=== PATIENT | female | born 1990 | race African-American/Black ===

== ENCOUNTER 2017-05-11 15:01 | Emergency (ER) | payer SELFPAY, OTHER ==
[2017-05-11 15:42] LABS: URINE HCG POC HCG NEGATIVE (Negative)
[2017-05-11 16:13] LABS: BACTERIA,URINE 0 /HPF (0-FEW); BILIRUBIN,URINE NEGATIVE (NEG); CLARITY,URINE CLEAR; COLOR,URINE YELLOW; GLUCOSE,URINE 500 mg/dL (NEG); NITRITE,URINE NEGATIVE (NEG); PH,URINE 5.5; PROTEIN,URINE NEGATIVE (NEG-TRACE); RBC,URINE OCC /HPF (0-2); SQUAMOUS EPITHELIAL CELL,UR FEW /LPF; UROBILINOGEN,URINE 0.2 mg/dL (0.2 mg/dL); WBC,URINE 0 /HPF (0-4)
[2017-05-11] MEDS: AZITHROMYCIN 250 MG TABLET. PO (17:14)
[2017-05-11] MEDS: cefTRIAXone IM 250 MG VIAL IM (17:15)
[2017-05-11] MEDS: LIDOCAINE 2% 20 ML VIAL. IJ (17:16)
[2017-05-14 19:19] LABS: CHLAMYDIA PROBE Negative (Negative); GC PROBE Negative (Negative)
== END 2017-05-11 17:30 | disposition home or self-care (01) ==
LOC: ER 15:01
DX: B37.9 Candidiasis, unspecified (principal); A59.9 Trichomoniasis, unspecified
CPT/HCPCS: 81001; 81025; 87491; 87591; 96372; 99284; J0696; Q0111; Q0144

== ENCOUNTER 2017-05-26 18:53 | Emergency (ER) | payer SELFPAY | END 2017-05-26 20:14 | disposition home or self-care (01) | LOC: ER 18:53 | DX: R19.7 Diarrhea, unspecified (principal); R10.9 Unspecified abdominal pain; F17.200 Nicotine dependence, unspecified, uncomplicated | CPT/HCPCS: 99283 ==

== ENCOUNTER 2017-07-16 11:29 | Inpatient (IN) | payer OTHER ==
[2017-07-16 11:55] LABS: URINE HCG POC HCG NEGATIVE (Negative)
[2017-07-16 12:18] LABS: BILIRUBIN,URINE NEGATIVE (NEG); CLARITY,URINE CLEAR; COLOR,URINE YELLOW; GLUCOSE,URINE >=1000 mg/dL (NEG); NITRITE,URINE NEGATIVE (NEG); PH,URINE 5.5; PROTEIN,URINE NEGATIVE (NEG-TRACE)
[2017-07-16 12:34] LABS: ADD MAN DIFF? NO; BASO % 1 % (0-3); EOS % 1 % (0-3); HEMATOCRIT 44.5 % (36.0-47.0); HEMOGLOBIN 14.5 g/dL (12.0-15.5); LYMPH # 1.8 x10^3/uL (1.0-4.8); LYMPH % 31 % (24-48); MEAN CORPUSCULAR HEMOGLOBIN 26 pg (25-35); MEAN CORPUSCULAR HGB CONC 33 g/dL (31-37); MEAN CORPUSCULAR VOLUME 80 fL (79-100); MONO # 0.4 x10^3/uL (0.0-1.1); MONO % 6 % (0-9); NEUT # 3.5 x10^3uL (1.8-7.7); NEUT % 61 % (31-73); PLATELET COUNT 188 x10^3/uL (140-400); RED BLOOD COUNT 5.56 x10^6/uL (3.50-5.40); RED CELL DISTRIBUTION WIDTH 13.2 % (11.5-14.5); WHITE BLOOD COUNT 5.6 x10^3/uL (4.0-11.0)
[2017-07-16 12:36] LABS: BACTERIA,URINE 0 /HPF (0-FEW); SQUAMOUS EPITHELIAL CELL,UR FEW /LPF
[2017-07-16 12:43] LABS: INR 1.1 (0.8-1.1); PARTIAL THROMBOPLASTIN TIME 30 SEC (24-38); PROTHROMBIN TIME PATIENT 13.9 SEC (11.7-14.0)
[2017-07-16 13:02] LABS: ALBUMIN/GLOBULIN RATIO 0.7 (1.0-1.7); ALK PHOS 97 U/L (46-116); ALT (SGPT) 28 U/L (14-59); ANION GAP 10 (6-14); AST (SGOT) 12 U/L (15-37); BLOOD UREA NITROGEN 19 mg/dL (7-20); BUN/CREATININE RATIO 21 (6-20); CALCIUM 8.7 mg/dL (8.5-10.1); CARBON DIOXIDE 27 mmol/L (21-32); CHLORIDE 98 mmol/L (98-107); CREATININE 0.9 mg/dL (0.6-1.0); DIRECT BILIRUBIN < 0.1 mg/dL (0.0-0.2); GFR 89.6; POTASSIUM 4.2 mmol/L (3.5-5.1); SODIUM 135 mmol/L (136-145); TOTAL BILIRUBIN 0.4 mg/dL (0.2-1.0); TOTAL PROTEIN 7.3 g/dL (6.4-8.2)
[2017-07-16 13:05] LABS: GLUCOSE 542 mg/dL (70-99)
[2017-07-16 13:35] LABS: FECAL OB PT POSITIVE (NEG); NEG OBC FOB NEG; POS OBC FOB POS
[2017-07-16] MEDS: INSULIN REGULAR 100 UNIT/ML 10ML VIAL. IV (14:04)
[2017-07-16] MEDS: IV NORMAL SALINE 1000ML BAG 1,000 ML IV ×2 (14:18→23:06)
[2017-07-16] MEDS: PANTOPRAZOLE SODIUM IV DRIP 80 MG in IV NORMAL SALINE 100ML 100 ML IV (14:18)
[2017-07-16] MEDS: INSULIN ASPART 300 UNITS/3 ML INSULN.PEN SQ (17:25)
[2017-07-16] MEDS: NICOTINE 14MG PATCH. TD (18:00)
[2017-07-16 18:10] LABS: HEMOGLOBIN 13.8 g/dL (12.0-15.5)
[2017-07-16 18:10] LABS: HEMATOCRIT 43.1 % (36.0-47.0)
[2017-07-16] MEDS: fentaNYL PF VIAL 100 MCG/2 ML VIAL IV (18:49)
[2017-07-16] MEDS ORDERED: PNEUMOCOCCAL VAX SCREEN BY RX. MC (19:00)
[2017-07-16 21:03] LABS: POC GLUCOSE 249 mg/dL (70-99)
[2017-07-16 23:03] LABS: POC GLUCOSE 169 mg/dL (70-99)
[2017-07-16] MEDS: INSULIN DETEMIR 300 UNITS/3 ML INSULN.PEN. SQ (23:10)
[2017-07-17 03:14] LABS: POC GLUCOSE 89 mg/dL (70-99)
[2017-07-17] MEDS: fentaNYL PF VIAL 100 MCG/2 ML VIAL IV (04:55)
[2017-07-17] MEDS: ACETAMINOPHEN 325 MG TABLET. PO (04:56)
[2017-07-17 05:01] LABS: ADD MAN DIFF? NO
[2017-07-17] MEDS: ONDANSETRON PF 4 MG/2 ML VIAL. IV (05:14)
[2017-07-17 05:33] LABS: BASO % 1 % (0-3); EOS # 0.1 x10^3/uL (0.0-0.7); EOS % 1 % (0-3); HEMATOCRIT 41.5 % (36.0-47.0); HEMOGLOBIN 13.4 g/dL (12.0-15.5); LYMPH # 2.7 x10^3/uL (1.0-4.8); LYMPH % 43 % (24-48); MEAN CORPUSCULAR HEMOGLOBIN 26 pg (25-35); MEAN CORPUSCULAR HGB CONC 32 g/dL (31-37); MEAN CORPUSCULAR VOLUME 80 fL (79-100); MONO # 0.6 x10^3/uL (0.0-1.1); MONO % 10 % (0-9); NEUT # 2.8 x10^3uL (1.8-7.7); NEUT % 45 % (31-73); PLATELET COUNT 183 x10^3/uL (140-400); RED BLOOD COUNT 5.16 x10^6/uL (3.50-5.40); RED CELL DISTRIBUTION WIDTH 13.3 % (11.5-14.5); WHITE BLOOD COUNT 6.2 x10^3/uL (4.0-11.0)
[2017-07-17 05:54] LABS: ALBUMIN 2.5 g/dL (3.4-5.0); ALBUMIN/GLOBULIN RATIO 0.7 (1.0-1.7); ALK PHOS 56 U/L (46-116); ALT (SGPT) 25 U/L (14-59); ANION GAP 9 (6-14); AST (SGOT) 17 U/L (15-37); BLOOD UREA NITROGEN 12 mg/dL (7-20); BUN/CREATININE RATIO 17 (6-20); CARBON DIOXIDE 25 mmol/L (21-32); CHLORIDE 107 mmol/L (98-107); CREATININE 0.7 mg/dL (0.6-1.0); GFR 119.7; GLUCOSE 140 mg/dL (70-99); POTASSIUM 3.5 mmol/L (3.5-5.1); SODIUM 141 mmol/L (136-145); TOTAL BILIRUBIN 0.7 mg/dL (0.2-1.0); TOTAL PROTEIN 6.3 g/dL (6.4-8.2)
[2017-07-17 07:40] LABS: POC GLUCOSE 147 mg/dL (70-99)
[2017-07-17] MEDS: PNEUMOC CONJ VACC 23-VALENT 0.5 ML VIAL. VAX IM (09:24)
[2017-07-17] MEDS: NICOTINE 14MG PATCH. TD (09:24)
[2017-07-17] MEDS: INSULIN ASPART 300 UNITS/3 ML INSULN.PEN SQ ×2 (09:25→11:30)
[2017-07-17] MEDS: IV NORMAL SALINE 1000ML BAG 1,000 ML IV (09:26)
[2017-07-17 11:30] LABS: POC GLUCOSE 83 mg/dL (70-99)
[2017-07-17 12:18] LABS: POC GLUCOSE 80 mg/dL (70-99)
[2017-07-17] MEDS: PANTOPRAZOLE 40 MG TABLET.DR. PO (14:05)
== END 2017-07-17 16:31 | disposition home or self-care (01) | DRG 378 ==
LOC: ER 11:29 → 5 SOUTH 13:44
DX: K62.5 Hemorrhage of anus and rectum (principal); Q20.5 Discordant atrioventricular connection; F17.210 Nicotine dependence, cigarettes, uncomplicated; R73.9 Hyperglycemia, unspecified; K21.9 Gastro-esophageal reflux disease without esophagitis; K27.9 Peptic ulcer, site unspecified, unspecified as acute or chronic, without hemorrhage or perforation; Z83.3 Family history of diabetes mellitus; Z87.11 Personal history of peptic ulcer disease; Z86.32 Personal history of gestational diabetes
CPT/HCPCS: 36415; 74022; 80053; 80076; 81001; 81025; 82274; 82962; 85014; 85018; 85025; 85610; 85730; 86850; 86900; 86901; 90732; 96365; 96375; 99285; 99285-25; 99406; C9113; J1815; J2405; J3010; J7030

== ENCOUNTER 2017-07-22 23:46 | Emergency (ER) | payer OTHER ==
[2017-07-23 00:25] LABS: POC GLUCOSE 478 mg/dL (70-99)
[2017-07-23 00:51] LABS: BILIRUBIN,URINE NEGATIVE (NEG); CLARITY,URINE CLEAR; COLOR,URINE YELLOW; GLUCOSE,URINE >=1000 mg/dL (NEG); NITRITE,URINE NEGATIVE (NEG); PROTEIN,URINE NEGATIVE (NEG-TRACE)
[2017-07-23 00:58] LABS: BACTERIA,URINE 0 /HPF (0-FEW); RBC,URINE OCC /HPF (0-2); SQUAMOUS EPITHELIAL CELL,UR FEW /LPF; WBC,URINE OCC /HPF (0-4)
[2017-07-23] MEDS: IV NORMAL SALINE 1000ML BAG 1,000 ML IV ×2 (01:08→02:05)
[2017-07-23 01:31] LABS: AGAP ISTAT 18 mmol/L (6-14); BUN ISTAT 20 mg/dL (8-26); CHLORIDE ISTAT 97 mmol/L (98-110); CREATININE ISTAT 0.9 mg/dL (0.5-1.4); GLUCOSE ISTAT 474 mg/dL (70-99); HEMATOCRIT ISTAT 42 % (36-40); HEMOGLOBIN ISTAT 14.3 g/dL (12-15); ION CA ISTAT 1.13 mmol/L (1.13-1.32); POTASSIUM ISTAT 4.4 mmol/L (3.5-5.0); SODIUM ISTAT 135 mmol/L (135-145); TOT CO2 ISTAT 25 mmol/L (23-32)
[2017-07-23 01:48] LABS: POC GLUCOSE 467 mg/dL (70-99)
[2017-07-23] MEDS: INSULIN REGULAR 100 UNIT/ML 10ML VIAL. IV (02:01)
[2017-07-23] MEDS: SUCRALFATE 1 GM/10 ML ORAL.SUSP. PEG (03:02)
[2017-07-23 03:15] LABS: POC GLUCOSE 182 mg/dL (70-99)
== END 2017-07-23 03:47 | disposition home or self-care (01) ==
LOC: ER 23:46
DX: E11.65 Type 2 diabetes mellitus with hyperglycemia (principal); E86.0 Dehydration; Z87.19 Personal history of other diseases of the digestive system
CPT/HCPCS: 36415; 80047; 81001; 82962; 85014; 85018; 96361; 96374; 99285-25; J1815; J7030

== ENCOUNTER 2017-08-24 16:28 | Emergency (ER) | payer OTHER ==
[2017-08-24 17:06] LABS: URINE HCG POC HCG NEGATIVE (Negative)
[2017-08-24 17:28] LABS: BILIRUBIN,URINE NEGATIVE (NEG); CLARITY,URINE CLEAR; COLOR,URINE YELLOW; GLUCOSE,URINE >=1000 mg/dL (NEG); NITRITE,URINE NEGATIVE (NEG); PROTEIN,URINE NEGATIVE (NEG-TRACE)
[2017-08-24 17:37] LABS: ADD MAN DIFF? NO; BACTERIA,URINE 0 /HPF (0-FEW); RBC,URINE OCC /HPF (0-2); SQUAMOUS EPITHELIAL CELL,UR FEW /LPF; WBC,URINE 0 /HPF (0-4)
[2017-08-24 17:40] LABS: BASO # 0.1 x10^3/uL (0.0-0.2); BASO % 1 % (0-3); EOS % 1 % (0-3); HEMATOCRIT 41.8 % (36.0-47.0); LYMPH # 1.7 x10^3/uL (1.0-4.8); LYMPH % 32 % (24-48); MEAN CORPUSCULAR HEMOGLOBIN 27 pg (25-35); MEAN CORPUSCULAR HGB CONC 33 g/dL (31-37); MEAN CORPUSCULAR VOLUME 80 fL (79-100); MONO # 0.4 x10^3/uL (0.0-1.1); MONO % 7 % (0-9); NEUT # 3.2 x10^3uL (1.8-7.7); NEUT % 59 % (31-73); PLATELET COUNT 189 x10^3/uL (140-400); RED BLOOD COUNT 5.21 x10^6/uL (3.50-5.40); RED CELL DISTRIBUTION WIDTH 12.7 % (11.5-14.5); WHITE BLOOD COUNT 5.3 x10^3/uL (4.0-11.0)
[2017-08-24 17:57] LABS: ANION GAP 10 (6-14); BLOOD UREA NITROGEN 14 mg/dL (7-20); CALCIUM 8.9 mg/dL (8.5-10.1); CARBON DIOXIDE 25 mmol/L (21-32); CHLORIDE 100 mmol/L (98-107); CREATININE 1.1 mg/dL (0.6-1.0); GFR 71.1; POTASSIUM 3.9 mmol/L (3.5-5.1); SODIUM 135 mmol/L (136-145)
[2017-08-24 18:04] LABS: GLUCOSE 519 mg/dL (70-99)
[2017-08-24] MEDS ORDERED: INSULIN REGULAR 100 UNIT/ML 3ML VIAL. IV (18:15)
[2017-08-24] MEDS ORDERED: IV NORMAL SALINE 1000ML BAG 1,000 ML IV ×2 (18:15)
[2017-08-26 14:29] LABS: CHLAMYDIA PROBE Negative (Negative); GC PROBE Negative (Negative)
== END 2017-08-24 18:20 | disposition left against medical advice (07) ==
LOC: ER 16:28
DX: O46.91 Antepartum hemorrhage, unspecified, first trimester (principal); E11.65 Type 2 diabetes mellitus with hyperglycemia; O24.911 Unspecified diabetes mellitus in pregnancy, first trimester; Z87.19 Personal history of other diseases of the digestive system; Z3A.01 Less than 8 weeks gestation of pregnancy
CPT/HCPCS: 36415; 80048; 81001; 81025; 84702; 85025; 87491; 87591; 99284; Q0111

== ENCOUNTER 2019-04-11 22:46 | Emergency (ER) | payer OTHER ==
[~2019-04-11] VITALS: Ht 152.4 cm; Wt 72.6 kg
[~2019-04-11 22:46] MED LIST: ACET500T68 PO; DICY20TA3 PO; DIPH1TAB PO; DIPH25CA58 PO; FLUC150T PO; METF500T16 PO; METR500T PO; NYST15PO9 TP; PANT20TA2 PO; RANI-376 PO
[2019-04-11] MEDS ORDERED: LIDOCAINE 1% Multi-Dose 20 ML VIAL. INJ ONE (23:45)
--- NOTE | 2019-04-11 23:57 | PHYS DOC ---
Past Medical History Past Medical History: Diabetes-Type II, Other Additional Past Medical Histor: ventricle inversion, GASTRIC ULCER, GEST. DIABETES, STAPH INFECTION Past Surgical History: , Other Additional Past Surgical Histo: hip surgery for dislocation Alcohol Use: Occasionally Drug Use: None Adult General Chief Complaint Chief Complaint: ABSCESS HPI HPI Patient is a 29-year-old female with a history of diabetes who states she is developed a painful swollen area on her right buttock. This is been over the last several days. She states she shaved her perineal area and shortly thereafter developed a pustule. She states initially the pustule drained however a day or so later she noted that the swelling was back and the size increased over a day or so. She denies any fever chills or sweats. She has had a history of staph infection in the past.[] Review of Systems Review of Systems Constitutional: Denies fever or chills [] Eyes: Denies change in visual acuity, redness, or eye pain [] HENT: Denies nasal congestion or sore throat [] Respiratory: Denies cough or shortness of breath [] Cardiovascular: No additional information not addressed in HPI [] GI: Denies abdominal pain, nausea, vomiting, bloody stools or diarrhea [] : Denies dysuria or hematuria [] Musculoskeletal: Denies back pain or joint pain [] Integument: Per history of present illness[] Neurologic: Denies headache, focal weakness or sensory changes [] Endocrine: Denies polyuria or polydipsia [] All other systems were reviewed and found to be within normal limits, except as documented in this note. Current Medications Current Medications Current Medications Medications (Trade) Dose Ordered Sig/[facility] Start Time Stop Time Status Last Admin Dose Admin Lidocaine HCl (Lidocaine 1% 20ml Vial) 20 ml 1X ONCE 04/11/19 23:45 04/11/19 23:46 DC Allergies Allergies Allergies Coded Allergies Type Severity Reaction Last Updated Verified No Known Drug Allergies 02/08/14 No Physical Exam Physical Exam Constitutional: Well developed, well nourished, mild to moderate distress, non- toxic appearance. [] HENT: Normocephalic, atraumatic, bilateral external ears normal, oropharynx moist, no oral exudates, nose normal. [] Eyes: PERRLA, EOMI, conjunctiva normal, no discharge. [] Neck: Normal range of motion, no tenderness, supple, no stridor. [] Cardiovascular:Heart rate regular rhythm, no murmur [] Lungs & Thorax: Bilateral breath sounds clear to auscultation [] Abdomen: Bowel sounds normal, soft, no tenderness, no masses, no pulsatile masses. [] Skin: On the inferior medial aspect of the right gluteal cleft that does not track towards the anus there is a golf ball size abscess that is easily identified and palpated.. [] Back: No tenderness, no CVA tenderness. [] Extremities: No tenderness, no cyanosis, no clubbing, ROM intact, no edema. [] Neurologic: Alert and oriented X 3, normal motor function, normal sensory function, no focal deficits noted. [] Psychologic: Affect normal, judgement normal, mood normal. [] Current Patient Data Vital Signs Vital Signs Date Time Temp Pulse Resp B/P (MAP) Pulse Ox O2 Delivery O2 Flow Rate FiO2 04/11/19 23:00 99.1 108 16 147/65 (92) 98 Room Air 99.1 EKG EKG [] Radiology/Procedures Radiology/Procedures [] Course & Med Decision Making Course & Med Decision Making Pertinent Labs and Imaging studies reviewed. (See chart for details) [Procedure note: Abscess incision and drainage The abscess was identified and using 5 mL of 1% lidocaine the area around the abscess was injected and anesthetized. Then using an 11 blade a 2 cm incision was made. The wound was probed with hemostats and a large amount of purulent material was expressed. A dressing was then applied. The patient was given 10 mg Percocet, Bactrim DS and Zofran ODT.] Dragon Disclaimer Dragon Disclaimer This electronic medical record was generated, in whole or in part, using a voice recognition dictation system. Departure Departure Impression: Primary Impression: Abscess of right buttock Disposition: 01 HOME, SELF-CARE Condition: IMPROVED Referrals: UNKNOWN PCP NAME (PCP) Patient Instructions: Abscess, Abscess, Care After, Abscess, Perineal Additional Instructions: Return to the emergency department with any new or concerning symptoms. Scripts Ondansetron Hcl (ZOFRAN) 4 Mg Tablet 1 TAB PO Q8HRS PRN for NAUSEA, #20 TAB Prov: JIM ROBERT DO 04/12/19 Oxycodone/Apap 5-325 (PERCOCET 5-325 MG TABLET ) 1 Each Tablet 1 TAB PO PRN Q6HRS PRN for PAIN, #20 TAB 0 Refills Prov: JIM ROBERT DO 04/12/19 Sulfamethoxazole/Trimethoprim (BACTRIM DS TABLET) 1 Each Tablet 1 TAB PO BID, #20 TAB Prov: JIM ROBERT DO 04/12/19 JIM ROBERT DO Apr 11, 2019 23:57
[2019-04-12] VITALS: BP 118/86
[2019-04-12] MEDS ORDERED: ONDA4TAB7 PO (00:01)
[2019-04-12] MEDS ORDERED: SULF1TAB24 PO (00:01)
[2019-04-12] MEDS ORDERED: OXYC1TAB15 PO (00:01)
[2019-04-12] MEDS ORDERED: oxyCODONE/APAP 5/325 1 TAB TABLET PO ONE (00:30)
[2019-04-12] MEDS ORDERED: SMZ/TMP 800/160MG TABLET. PO ONE (00:30)
[2019-04-12] MEDS ORDERED: ONDANSETRON ODT 4 MG TAB.RAPDIS. PO ONE (00:30)
== END 2019-04-12 00:15 | disposition home or self-care (01) ==
LOC: ER 22:46
DX: L02.31 Cutaneous abscess of buttock (principal); E11.9 Type 2 diabetes mellitus without complications
CPT/HCPCS: 10060; 99283-25

== ENCOUNTER 2019-09-26 12:57 | Emergency (ER) | payer MEDICARE, OTHER ==
[~2019-09-26] VITALS: Ht 152.4 cm; Wt 77.0 kg
[~2019-09-26 12:57] MED LIST changes: +ONDA4TAB7 PO; +OXYC1TAB15 PO; +SULF1TAB24 PO
[2019-09-26 13:23] VITALS: BP 124/82
[2019-09-26] MEDS ORDERED: HYDR-3164 PO (14:21)
[2019-09-26] MEDS ORDERED: CEPH-264 PO (14:21)
--- NOTE | 2019-09-26 14:22 | PHYS DOC ---
Past Medical History Past Medical History: Diabetes-Type II, Other Additional Past Medical Histor: ventricle inversion, GASTRIC ULCER, GEST. DIABETES, STAPH INFECTION Past Surgical History: , Other Additional Past Surgical Histo: hip surgery for dislocation Smoking Status: Current Every Day Smoker Alcohol Use: Occasionally Drug Use: None General Adult EDM: Chief Complaint: INSECT BITE HPI: HPI: Patient is a 29 year old FEMALE who presents with bug bite to the back of her scalp for a week. Patient states is very tender. Patient states is been nondraining. Review of Systems: Review of Systems: Integument: Denies rash. Abscess. [] Heart Score: Risk Factors: Risk Factors: DM, Current or recent (<one month) smoker, HTN, HLP, family history of CAD, obesity. Risk Scores: Score 0 - 3: 2.5% MACE over next 6 weeks - Discharge Home Score 4 - 6: 20.3% MACE over next 6 weeks - Admit for Clinical Observation Score 7 - 10: 72.7% MACE over next 6 weeks - Early Invasive Strategies Allergies: Allergies: Allergies Coded Allergies Type Severity Reaction Last Updated Verified No Known Drug Allergies 02/08/14 No Physical Exam: PE: Constitutional: Well developed, well nourished, no acute distress, non-toxic appearance. [] HENT: Normocephalic, atraumatic, bilateral external ears normal, oropharynx moist, no oral exudates, nose normal. [] Eyes: PERRLA, EOMI, conjunctiva normal, no discharge. [] Neck: Normal range of motion, no tenderness, supple, no stridor. [] Cardiovascular:Heart rate regular rhythm, no murmur [] Lungs & Thorax: Bilateral breath sounds clear to auscultation [] Abdomen: Bowel sounds normal, soft, no tenderness, no masses, no pulsatile masses. [] Skin: Warm, dry, no erythema, no rash. Abscess to the back of the scalp. [] Back: No tenderness, no CVA tenderness. [] Extremities: No tenderness, no cyanosis, no clubbing, ROM intact, no edema. [] Neurologic: Alert and oriented X 3, normal motor function, normal sensory function, no focal deficits noted. [] Psychologic: Affect normal, judgement normal, mood normal. [] Current Patient Data: Vital Signs: Vital Signs Date Time Temp Pulse Resp B/P (MAP) Pulse Ox O2 Delivery O2 Flow Rate FiO2 09/26/19 13:23 98.1 89 18 124/82 (96) 100 Room Air 98.1 EKG: EKG: [] Radiology/Procedures: Radiology/Procedures: [] Course & Med Decision Making: Course & Med Decision Making Pertinent Labs and Imaging studies reviewed. (See chart for details) Quarter sized hard non-indurated nondraining abscess to the back of her head with some surrounding redness that is mainly contained to the abscessed area. Afebrile. She denies fevers, nausea, vomiting, abdominal pain, chills, body aches, chest pain, shortness of breath, dizziness. States abscess is non- indurated and is not draining patient is given a antibiotic and is told to come back in 48 hours for a wound recheck. She is not diabetic. [] Dragon Disclaimer: Dragon Disclaimer: This electronic medical record was generated, in whole or in part, using a voice recognition dictation system. Departure Departure Impression: Primary Impression: Abscess Disposition: 01 HOME, SELF-CARE Condition: STABLE Referrals: UNKNOWN PCP NAME (PCP) Patient Instructions: Abscess Additional Instructions: Follow-up with primary care provider or return here in 48 hours for a wound recheck. Continue using warm compresses to the area. Take the antibiotic as prescribed and with food. Take pain medication as prescribed, with food and do not drink alcohol or drive while taking it. Scripts Hydrocodone/Apap 5-325 (NORCO 5-325 TABLET) 1 Each Tablet 1 TAB PO PRN Q6HRS PRN for PAIN, #10 TAB 0 Refills Prov: RINKU FORD APRN 09/26/19 Cephalexin (KEFLEX) 500 Mg Capsule 1 CAP PO TID for 10 Days, #30 CAP 0 Refills Prov: RINKU FORD APRN 09/26/19 Justicifation of Admission Dx: Justifications for Admission: Justification of Admission Dx: No (not needed) RINKU FORD APRN Sep 26, 2019 14:22
== END 2019-09-26 14:34 | disposition home or self-care (01) ==
LOC: ER 12:57
DX: L02.811 Cutaneous abscess of head [any part, except face] (principal); E11.9 Type 2 diabetes mellitus without complications; F17.200 Nicotine dependence, unspecified, uncomplicated; W57.XXXA Bitten or stung by nonvenomous insect and other nonvenomous arthropods, initial encounter; Y93.89 Activity, other specified; Y92.89 Other specified places as the place of occurrence of the external cause; Y99.8 Other external cause status
CPT/HCPCS: 99283

== ENCOUNTER 2021-08-25 09:13 | Emergency (ER) | payer MEDICARE, OTHER ==
[~2021-08-25] VITALS: Ht 152.4 cm; Wt 74.0 kg
[~2021-08-25 09:13] MED LIST changes: +CEPH-264 PO; +DICY20TA PO; -DICY20TA3 PO; +HYDR-3164 PO
[2021-08-25] MEDS ORDERED: IV NORMAL SALINE 1000ML BAG 1,000 ML IV SCH (09:45)
[2021-08-25 09:58] LABS: BARBITURATES NEG (NEG); BENZODIAZEPINES NEG (NEG); CANNABINOIDS NEG (NEG); COCAINE POS (NEG); METHADONE NEG (NEG); OPIATES NEG (NEG); PHENCYCLIDINE NEG (NEG)
[2021-08-25 09:59] LABS: AMPHETAMINE/METHAMPHETAMINE NEG (NEG)
--- NOTE | 2021-08-25 10:04 | PHYS DOC ---
Past Medical History Past Medical History: Diabetes-Type II, Other Additional Past Medical Histor: ventricle inversion, GASTRIC ULCER, GEST. DIABETES, STAPH INFECTION Past Surgical History: Cholecystectomy Additional Past Surgical Histo: hip surgery for dislocation Smoking Status: Current Every Day Smoker Alcohol Use: None Drug Use: None General Adult EDM: Chief Complaint: VAGINAL PROBLEM HPI: HPI: Patient is a 31 year old female who presents with vaginal yeast and uncontrolled neuropathy pain. She does not currently have a primary care provider. She gets her insulin for her diabetes through a telehealth doctor but they cannot prescribe her any strong medications only diabetes medications. She states that she takes sliding scale insulin in the morning and then she takes her nighttime insulin also. She denies chest pain, shortness of air, fever, back pain, urinary symptoms, abdominal pain, nausea, vomiting, diarrhea, headache, dizziness, focal weakness, vision change, excessive thirst. She does have to wear incontinence briefs due to medical condition from her cardiac arrest with internal bleeding surgeries and lumbar surgeries at . This all happened after cholecystectomy with complications. 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 Denies any pain at this time Review of Systems: Review of Systems: Constitutional: Denies fever or chills. [] Eyes: Denies change in visual acuity. [] HENT: Denies nasal congestion or sore throat. [] Respiratory: Denies cough or shortness of breath. [] Cardiovascular: Denies chest pain or edema. [] GI: Denies abdominal pain, nausea, vomiting, bloody stools or diarrhea. [] : Denies dysuria. [] Musculoskeletal: Denies back pain or joint pain. [] Integument: Denies rash. +vaginal yeast[] Neurologic: Denies headache, focal weakness or sensory changes. +hand and feet neuropathy pain[] Endocrine: Denies polyuria or polydipsia. [] Lymphatic: Denies swollen glands. [] Psychiatric: Denies depression or anxiety. [] Heart Score: C/O Chest Pain: No Current Medications: Current Medications Medications (Trade) Dose Ordered Sig/Mark Start Time Stop Time Status Last Admin Dose Admin Sodium Chloride 1,000 ml @ 1,000 mls/hr Q1H 08/25/21 09:45 08/25/21 10:44 Allergies: Allergies: Allergies Coded Allergies Type Severity Reaction Last Updated Verified No Known Drug Allergies 02/08/14 No Physical Exam: PE: Constitutional: Well developed, well nourished, no acute distress, non-toxic appearance. [] HENT: Normocephalic, atraumatic, bilateral external ears normal, oropharynx moist, no oral exudates, nose normal. [] Eyes: PERRLA, EOMI, conjunctiva normal, no discharge. [] Neck: Normal range of motion, no tenderness, supple, no stridor. [] Cardiovascular:Heart rate regular rhythm, no murmur [] Lungs & Thorax: Bilateral breath sounds clear to auscultation [] Abdomen: Bowel sounds normal, soft, no tenderness, no masses, no pulsatile masses. [] Skin: Warm, dry, no erythema, no rash. Vaginal yeast with skin break down in groins[] Back: No tenderness, no CVA tenderness. [] Extremities: No tenderness, no cyanosis, no clubbing, ROM intact, no edema. [] Neurologic: Alert and oriented X 3, normal motor function, normal sensory function, no focal deficits noted. [] Psychologic: Affect normal, judgement normal, mood normal. [] Current Patient Data: Labs: Laboratory Tests Test 08/25/21 09:36 08/25/21 09:41 Glucose (Fingerstick) 460 mg/dL (70-99) H POC Urine HCG, Qualitative Hcg negative (Negative) Vital Signs: Vital Signs Date Time Temp Pulse Resp B/P (MAP) Pulse Ox O2 Delivery O2 Flow Rate FiO2 08/25/21 09:43 98.0 84 20 136/78 (97) 98 Room Air 98.0 EKG: EKG: [] Radiology/Procedures: Radiology/Procedures: [] Course & Med Decision Making: Course & Med Decision Making Pertinent Labs and Imaging studies reviewed. (See chart for details) See HPI. Alert and oriented x4. Ambulatory steady gait. Speaks in full clear sentences. at bedside. Abdomen soft and nontender. Patient has skin breakdown in her left groin from yeast with tenderness and a very small pea- sized hard nodule. No cellulitis or drainage. States she is eating and drinking appropriately. Upon a glucose check patient's blood glucose was 460. She states that she took 14 units of insulin this morning. She states she usually runs in the 200s. Pelvic Exam: Morphologist present Abdomen: Nontender External Genitalia: Yeast with left groin skin breakdown from yeast. Speculum: Normal vaginal mucosa, normal cervical discharge, yeast, BV Bimanual: No adnexal masses or tenderness, No CMT Patient is given 5u of insulin, Diflucan, 1L NS bolus, Fentanyl. She is positive for Cocaine. I am not going to prescribe her narcotics or other non narcotic medications due to her not having appropriate follow up care and being positive for cocaine. I will suggest capsacin cream and better control of her diabetes. Blood work is unremarkable. I have spoken to Dr Hooks concerning this patients care plan and he is in agreement. [] [place] Disclaimer: Cari Disclaimer: This electronic medical record was generated, in whole or in part, using a voice recognition dictation system. Departure Departure Impression: Primary Impression: Hyperglycemia Additional Impressions: Vaginal yeast infection Diabetic neuropathy Qualified Codes: E11.43 - Type 2 diabetes mellitus with diabetic autonomic (poly)neuropathy Cocaine use Disposition: HOME / SELF CARE / HOMELESS Condition: STABLE Referrals: UNKNOWN PCP NAME (PCP) Patient Instructions: Bacterial Vaginosis, Cocaine Abuse and Chemical Dependency, Diabetic Neuropathy, Hyperglycemia, Yeast Infection of the Skin, [id number] Additional Instructions: Use capsaicin cream on feet for neuropathy. Get a primary care physician as soon as possible for better diabetes control. Drink plenty of fluids. If you begin having excessive thirst, excessive urination, dizziness, fever, return tot he ED. Stop using Cocaine. Scripts Metronidazole (METRONIDAZOLE) 500 Mg Tablet 1 TAB PO BID for 7 Days, #14 TAB 0 Refills Prov: RINKU FORD APRN 08/25/21 Nystatin (NYSTATIN) 15 Gm Cream..g. 1 KASSANDRA TP TID, #30 GM APPLY TO GROINS Prov: RINKU FORD APRN 08/25/21 Cephalexin (KEFLEX) 500 Mg Capsule 1 CAP PO TID for 7 Days, #21 CAP Prov: RINKU FORD APRN 08/25/21 Capsaicin (CAPSAICIN) 42.5 Gm Cream..g. 42.5 GM TP TID PRN PRN for PAIN, #1 EACH Prov: RINKU FORD APRN 08/25/21 RINKU FORD APRN August 25, 2021 10:04
[2021-08-25 10:09] LABS: BASO # 0.1 x10^3/uL (0.0-0.2); BASO % 1 % (0-3); EOS # 0.1 x10^3/uL (0.0-0.7); EOS % 2 % (0-3); HEMATOCRIT 39.3 % (36.0-47.0); HEMOGLOBIN 12.8 g/dL (12.0-15.5); LYMPH # 1.9 x10^3/uL (1.0-4.8); LYMPH % 25 % (24-48); MEAN CORPUSCULAR HEMOGLOBIN 26 pg (25-35); MEAN CORPUSCULAR HGB CONC 33 g/dL (31-37); MEAN CORPUSCULAR VOLUME 79 fL (79-100); MONO # 0.5 x10^3/uL (0.0-1.1); MONO % 7 % (0-9); NEUT # 4.9 x10^3/uL (1.8-7.7); NEUT % 65 % (31-73); PLATELET COUNT 272 x10^3/uL (140-400); RED CELL DISTRIBUTION WIDTH 12.7 % (11.5-14.5); WHITE BLOOD COUNT 7.5 x10^3/uL (4.0-11.0)
[2021-08-25 10:12] LABS: BACTERIA,URINE FEW /HPF (0-FEW); RBC,URINE 0 /HPF (0-2)
[2021-08-25 10:13] LABS: YEAST,URINE PRESENT /HPF
[2021-08-25] MEDS ORDERED: fentaNYL PF VIAL 100 MCG/2 ML VIAL IVP ONE (10:15)
[2021-08-25 10:19] LABS: CALCIUM 8.9 mg/dL (8.5-10.1); CREATININE 1.1 mg/dL (0.6-1.0); GFR 69.2; POTASSIUM 4.2 mmol/L (3.5-5.1)
[2021-08-25 10:24] LABS: ALBUMIN 2.4 g/dL (3.4-5.0); ALBUMIN/GLOBULIN RATIO 0.5 (1.0-1.7); MAGNESIUM 1.8 mg/dL (1.8-2.4); TOTAL BILIRUBIN 0.2 mg/dL (0.2-1.0); TOTAL PROTEIN 7.6 g/dL (6.4-8.2)
[2021-08-25] MEDS ORDERED: FLUCONAZOLE 100 MG TABLET. PO ONE (10:30)
[2021-08-25] MEDS ORDERED: INSULIN REGULAR 100 UNIT/ML 3ML VIAL. IV ONE (10:30)
[2021-08-25] MEDS ORDERED: NYST15CR TP (11:03)
[2021-08-25] MEDS ORDERED: CAPS42.514 TP (11:03)
[2021-08-25] MEDS ORDERED: CEPH500C PO (11:03)
[2021-08-25] MEDS ORDERED: METR-34 PO (11:06)
[2021-08-25 11:40] VITALS: BP 130/74
[2021-08-27 15:15] LABS: GC PROBE Negative (Negative)
== END 2021-08-25 11:40 | disposition home or self-care (01) ==
LOC: ER 09:13
DX: E11.65 Type 2 diabetes mellitus with hyperglycemia (principal); E11.43 Type 2 diabetes mellitus with diabetic autonomic (poly)neuropathy; B37.3 Candidiasis of vulva and vagina; F17.200 Nicotine dependence, unspecified, uncomplicated; Z90.49 Acquired absence of other specified parts of digestive tract
CPT/HCPCS: 36415; 80053; 80307; 81001; 81025; 82010; 82962; 83735; 85025; 87491; 87591; 96361; 96374; 96375; 99284; J1815; J3010; J7030; Q0111